=== PATIENT | female | born 1985 | race Asian ===

== ENCOUNTER → 2018-09-21 | Outpatient (CLI) | payer OTHER | END | disposition home or self-care (01) | LOC: CFH 14:12 | PROVIDERS: ATTEND Obstetrics & Gynecology Maternal & Fetal Medicine | DX: Z02.9 Encounter for administrative examinations, unspecified (principal) ==

== ENCOUNTER → 2018-10-04 | Outpatient (CLI) | payer OTHER | END | disposition home or self-care (01) | LOC: CFH 13:43 | PROVIDERS: ATTEND Obstetrics & Gynecology Maternal & Fetal Medicine | DX: N64.4 Mastodynia (principal) | CPT/HCPCS: 76642 ==

== ENCOUNTER 2018-10-08 16:41 | Inpatient (IN) | payer OTHER ==
[~2018-10-08] VITALS: Ht 157.5 cm; Wt 61.8 kg
[2018-10-16] MEDS: AMPICILLIN 1 GM in SODIUM CHLORIDE 0.9% 100 ML IVPB SCH (13:30)
[2018-10-16] MEDS ORDERED: D5%-LACTATED RINGERS 1,000 ML IV SCH (14:51)
[2018-10-16] MEDS ORDERED: AMPICILLIN 2 GM in SODIUM CHLORIDE 0.9% 100 ML IVPB STA (14:51)
[2018-10-16] MEDS ORDERED: OXYTOCIN 30U/ 0.9% NaCL 500ML 500 ML IV ONE (14:51)
[2018-10-16] MEDS ORDERED: ONDANSETRON 2MG/ML, 2ML IVPush PRN (15:00)
[2018-10-16] MEDS ORDERED: FENTANYL PF 100 MCG/2ML IVPush PRN (15:00)
[2018-10-16] MEDS ORDERED: FENTANYL PF 100 MCG/2ML IV PRN (15:00)
[2018-10-16] MEDS ORDERED: MISOPROSTOL 25 MCG TABLET VG PRN (15:00)
[2018-10-16] MEDS: LACTATED RINGERS 1,000 ML IV SCH (15:07)
[2018-10-16 15:08] VITALS: BP 109/71
[2018-10-16] MEDS ORDERED: NEWBORN KIT ONE (15:11)
[2018-10-16 15:13] LABS: BASOPHILS # (AUTO) 0.04 x10^3/uL (0-0.1); BASOPHILS % (AUTO) 0 % (0-1); EOSINOPHILS # (AUTO) 0.03 x10^3/uL (0-0.4); EOSINOPHILS % (AUTO) 0 % (1-7); LYMPHOCYTES # (AUTO) 1.43 x10^3/uL (1-3.4); LYMPHOCYTES % (AUTO) 15 % (22-44); MD NO; MEAN CORPUSCULAR HEMOGLOBIN 32.6 pg (27.0-34.8); MEAN CORPUSCULAR HGB CONC 34.6 g/dL (32.4-35.8); MEAN CORPUSCULAR VOLUME 94.4 fL (80-100); MEAN PLATELET VOLUME 7.2 fL (7.4-10.4); MONOCYTES # (AUTO) 0.46 x10^3/uL (0.2-0.8); MONOCYTES % (AUTO) 5 % (2-9); NEUTROPHILS # (AUTO) 7.54 x10^3/uL (1.8-6.8); NEUTROPHILS % (AUTO) 79 % (42-75); PLATELET COUNT 246 x10^3/uL (130-400); RED BLOOD COUNT 4.79 x10^6/uL (3.82-5.3)
[2018-10-16] MEDS ORDERED: PLEASE ENTER HEIGHT AND WEIGHT MC SCH (15:30)
[2018-10-16] MEDS ORDERED: MISOPROSTOL 200 MCG TABLET ONE (16:53)
[2018-10-16] MEDS ORDERED: MISOPROSTOL 25 MCG TABLET ONE (16:53)
[2018-10-16] MEDS ORDERED: LIDOCAINE 1%, 20ML ONE (16:53)
[2018-10-16] MEDS ORDERED: OXYTOCIN 30U/ 0.9% NaCL 500ML 500 ML IV PRN (22:46)
[2018-10-17] MEDS ORDERED: OXYTOCIN 30U/ 0.9% NaCL 500ML 500 ML ONE ×2 (02:02→22:54)
[2018-10-17] MEDS ORDERED: FENTANYL/BUPIV./NS/PF 250 ML EPIDCONT SCH (11:10)
[2018-10-17] MEDS ORDERED: FENTANYL PF 500 MCG, BUPIVACAINE/PF 0.5%, 30ML 62.5 ML in SODIUM CHLORIDE 0.9% 177.5 ML EPIDCONT SCH (11:30)
[2018-10-17] MEDS: LACTATED RINGERS 1,000 ML IV SCH ×3 (12:27→21:31)
[2018-10-17] MEDS ORDERED: FENTANYL PF 100 MCG/2ML ONE ×2 (12:36→14:26)
[2018-10-17] MEDS ORDERED: BUPIVACAINE 0.25% ONE (14:26)
[2018-10-17] MEDS: AMPICILLIN 1 GM in SODIUM CHLORIDE 0.9% 100 ML IVPB SCH ×2 (17:30→21:31)
[2018-10-17] MEDS ORDERED: ACETAMINOPHEN 325 MG TABLET PO PRN (23:00)
[2018-10-17] MEDS ORDERED: OXYcodone IR 5MG TABLET PO PRN (23:00)
[2018-10-17] MEDS ORDERED: ONDANSETRON 2MG/ML, 2ML IV PRN (23:00)
[2018-10-17] MEDS ORDERED: MISOPROSTOL 200 MCG TABLET PR PRN (23:00)
[2018-10-17] MEDS: OXYTOCIN 30U/ 0.9% NaCL 500ML 500 ML IV SCH (23:14)
[2018-10-18 01:20] VITALS: BP 109/73
[2018-10-18] MEDS: IBUPROFEN 600 MG TABLET PO PRN ×4 (04:29→23:10)
[2018-10-18 04:41] VITALS: BP 106/71
[2018-10-18 05:59] LABS: MEAN CORPUSCULAR HGB CONC 34.9 g/dL (32.4-35.8); MEAN CORPUSCULAR VOLUME 94.5 fL (80-100); MEAN PLATELET VOLUME 7.1 fL (7.4-10.4); PLATELET COUNT 197 x10^3/uL (130-400); RED BLOOD COUNT 4.46 x10^6/uL (3.82-5.3); RED CELL DISTRIBUTION WIDTH 12.9 % (9.6-15.2)
[2018-10-18 06:31] LABS: MD YES
[2018-10-18 06:33] LABS: <PLATELET ESTIMATE> ADEQUATE; <PLT MORPHOLOGY> NORMAL PLT MORPH; <RBC MORPHOLOGY> NORMAL; BAND#(MANUAL) 5.73 x10^3/uL; BANDS%(MANUAL) 21 % (0-7); EOS#(MANUAL) 0.27 x10^3/uL (0.0-0.4); EOS% (MANUAL) 1 % (1-7); LYMPH#(MANUAL) 1.64 x10^3/uL (1-3.4); LYMPHS% (MANUAL) 6 % (22-44); MONOS#(MANUAL) 1.37 x10^3/uL (0.3-2.7); MONOS% (MANUAL) 5 % (2-9); SEG#(MANUAL) 18.29 x10^3/uL (1.8-6.8); SEGS% (MANUAL) 67 % (42-75)
[2018-10-18 07:25] VITALS: BP 99/64
[2018-10-18] MEDS: OXYTOCIN 30U/ 0.9% NaCL 500ML 500 ML IV SCH ×2 (08:41→18:41)
[2018-10-18] MEDS: DOCUSATE 100 MG CAPSULE PO PRN ×2 (08:48→23:10)
[2018-10-18] MEDS: OXYcodone/APAP 5/325MG TABLET PO PRN ×2 (08:48→23:10)
[2018-10-18] MEDS ORDERED: PRENATAL VIT/IRON/FA 1 EACH TABLET PO SCH (09:00)
[2018-10-18 11:25] VITALS: BP 102/68
[2018-10-18 17:00] VITALS: BP 111/76
[2018-10-18 20:50] VITALS: BP 104/73
[2018-10-19] MEDS: OXYTOCIN 30U/ 0.9% NaCL 500ML 500 ML IV SCH (04:41)
[2018-10-19] MEDS: IBUPROFEN 600 MG TABLET PO PRN (07:42)
[2018-10-19] MEDS: DOCUSATE 100 MG CAPSULE PO PRN (07:42)
== END 2018-10-19 11:22 | disposition home or self-care (01) | DRG 807 ==
LOC: LDIP 10-16 14:35 → 2NW 10-18 01:12
PROVIDERS: ADMIT Obstetrics & Gynecology Maternal & Fetal Medicine; ATTEND Obstetrics & Gynecology Maternal & Fetal Medicine
PROC: 10E0XZZ Delivery of Products of Conception, External Approach (ICD-10-PCS; principal; 2018-10-17)
PROC: 0W8NXZZ Division of Female Perineum, External Approach (ICD-10-PCS; 2018-10-17)
PROC: 3E0R3BZ Introduction of Anesthetic Agent into Spinal Canal, Percutaneous Approach (ICD-10-PCS; 2018-10-17)
PROC: 00HU33Z Insertion of Infusion Device into Spinal Canal, Percutaneous Approach (ICD-10-PCS; 2018-10-17)
DX: O48.0 Post-term pregnancy (principal); Z37.0 Single live birth; Z3A.41 41 weeks gestation of pregnancy
CPT/HCPCS: 36415; J7121; 85025; 86850; 86900; G0378; J0290; J3010; J3490; J2590; J7050; J7120